=== PATIENT | male | born 1990 | race Hispanic/Latino ===

== ENCOUNTER 2018-06-08 23:43 | Emergency (ER) | payer SELFPAY | END 2018-06-09 00:41 | disposition home or self-care (01) | LOC: EDH 23:43 | DX: J03.90 Acute tonsillitis, unspecified (principal) | CPT/HCPCS: 87880 ==

== ENCOUNTER 2018-06-12 08:37 | Emergency (ER) | payer OTHER | END 2018-06-12 09:33 | disposition home or self-care (01) | LOC: EDH 08:37 | DX: H10.9 Unspecified conjunctivitis (principal) ==

== ENCOUNTER 2018-09-17 11:42 | Emergency (ER) | payer OTHER ==
[2018-09-17] MEDS ORDERED: SODIUM CHLORIDE 0.9% 1000ML 1,000 ML IV ONE (12:38)
[2018-09-17 12:42] LABS: BASOPHILS % (AUTO) 0.8 % (0.0-5.0); EOSINOPHILS % (AUTO) 1.1 % (0.0-8.0); HEMATOCRIT 49.9 % (42-54); MEAN CORPUSCULAR HEMOGLOBIN 29.1 pg (27.0-33.0); MEAN CORPUSCULAR VOLUME 85.6 fL (79-99); MONOCYTES % (AUTO) 7.7 % (3.0-13.0); NEUTROPHILS % (AUTO) 64.4 % (40.0-77.0); NUCLEATED RED BLOOD CELLS 0.1 % (0.0-0.19); PLATELET COUNT (AUTO) 240 K/uL (130-400); RED BLOOD CELL COUNT(AUTO) 5.82 MIL/uL (4.50-6.20); RED CELL DISTRIBUTION WIDTH 12.9 % (11.0-15.5); WHITE BLOOD COUNT (AUTO) 9.5 K/uL (4.8-10.8)
[2018-09-17 12:48] LABS: APPEARANCE,URINE Clear (CLEAR); BILIRUBIN,URINE Negative (NEGATIVE); COLOR,URINE Yellow (YELLOW); GLUCOSE, URINE (UA) Negative (NEGATIVE); KETONES,URINE Negative (NEGATIVE); LEUKOCYTE ESTERASE ,URINE Negative (NEGATIVE); NITRATE,URINE Negative (NEGATIVE); OCCULT BLOOD,URINE Negative (NEGATIVE); PH,URINE 6.5 (5.0-8.0); PROTEIN,URINE Negative (NEGATIVE)
[2018-09-17 13:15] LABS: CREATININE 0.9 mg/dL (0.5-1.5)
[2018-09-17 13:19] LABS: BILIRUBIN,TOTAL 0.6 mg/dL (0.2-1.0); TOTAL PROTEIN, SERUM 7.9 g/dL (6.0-8.3)
[2018-09-17] MEDS ORDERED: KETOROLAC TROMETHAMINE 15MG/ML ONE (13:39)
== END 2018-09-17 13:54 | disposition home or self-care (01) ==
LOC: EDH 11:42
DX: S39.011A Strain of muscle, fascia and tendon of abdomen, initial encounter (principal); X58.XXXA Exposure to other specified factors, initial encounter; Y93.89 Activity, other specified; Y92.89 Other specified places as the place of occurrence of the external cause; Y99.8 Other external cause status
CPT/HCPCS: 36415; 74176; 80053; 81003; 82150; 82550; 83690; 85025; 96374; 99284; J1885; J7030

== ENCOUNTER 2018-11-11 20:42 | Emergency (ER) | payer SELFPAY ==
[2018-11-11 23:11] LABS: BASOPHILS % (AUTO) 0.9 % (0.0-5.0); EOSINOPHILS % (AUTO) 1.1 % (0.0-8.0); HEMATOCRIT 47.4 % (42-54); LYMPHOCYTES % (AUTO) 28.3 % (21.0-51.0); MEAN CORPUSCULAR HEMOGLOBIN 29.5 pg (27.0-33.0); MEAN CORPUSCULAR HGB CONC 34.4 g/dL (32.0-36.0); MEAN CORPUSCULAR VOLUME 85.8 fL (79-99); MONOCYTES % (AUTO) 6.9 % (3.0-13.0); NEUTROPHILS % (AUTO) 62.8 % (40.0-77.0); PLATELET COUNT (AUTO) 217 K/uL (130-400); RED BLOOD CELL COUNT(AUTO) 5.53 MIL/uL (4.50-6.20); RED CELL DISTRIBUTION WIDTH 12.7 % (11.0-15.5); WHITE BLOOD COUNT (AUTO) 9.1 K/uL (4.8-10.8)
[2018-11-11 23:24] LABS: INR 0.99 (0.85-1.15); PARTIAL THROMBOPLASTIN TIME 29.2 SEC (26.3-35.5); PROTHROMBIN TIME 10.4 SEC (9.6-11.6)
[2018-11-11 23:29] LABS: POTASSIUM 3.7 mmol/L (3.5-5.1)
[2018-11-11] MEDS ORDERED: IOHEXOL 350 MG/ML 100ML INFUS..BTL IV ONE (23:32)
[2018-11-11 23:34] LABS: ALBUMIN 3.9 g/dL (3.5-5.0); BILIRUBIN,TOTAL 0.5 mg/dL (0.2-1.0); TOTAL PROTEIN, SERUM 7.5 g/dL (6.0-8.3)
== END 2018-11-12 01:32 | disposition home or self-care (01) ==
LOC: EDH 20:42
DX: R04.2 Hemoptysis (principal)
CPT/HCPCS: 36415; 71046; 71275; 80053; 85025; 85610; 85730; 99285; Q9967

== ENCOUNTER 2018-12-15 23:27 | Emergency (ER) | payer SELFPAY | END 2018-12-16 00:01 | disposition home or self-care (01) | LOC: EDH 23:27 | DX: S91.201A Unspecified open wound of right great toe with damage to nail, initial encounter (principal); W23.0XXA Caught, crushed, jammed, or pinched between moving objects, initial encounter; Y93.89 Activity, other specified; Y92.098 Other place in other non-institutional residence as the place of occurrence of the external cause; Y99.8 Other external cause status | CPT/HCPCS: 99281 ==

== ENCOUNTER 2019-04-28 16:36 | Emergency (ER) | payer OTHER ==
[2019-04-28] MEDS ORDERED: AZITHROMYCIN 250 MG TABLET PO ONE (17:20)
[2019-04-28] MEDS ORDERED: CEFTRIAXONE SODIUM 500 MG VIAL ONE (17:20)
[2019-04-28] MEDS ORDERED: LIDOCAINE HCL-MPF 1% 2ML VIAL ONE (17:20)
[2019-04-28 17:25] LABS: APPEARANCE,URINE Clear (CLEAR); BILIRUBIN,URINE Negative (NEGATIVE); COLOR,URINE Yellow (YELLOW); GLUCOSE, URINE (UA) Negative (NEGATIVE); KETONES,URINE Negative (NEGATIVE); LEUKOCYTE ESTERASE ,URINE Large (NEGATIVE); NITRATE,URINE Negative (NEGATIVE); OCCULT BLOOD,URINE Negative (NEGATIVE); PROTEIN,URINE Negative (NEGATIVE)
[2019-04-28 17:30] LABS: RBC,URINE 0-1 /HPF (0-1); WBC,URINE 26-50 /HPF (0-1)
[2019-04-28 17:31] LABS: BACTERIA,URINE Few /HPF (None Seen)
[2019-04-28 17:32] LABS: MUCUS,URINE Rare LPF (None Seen); SQUAMOUS EPITHELIAL CELL,UR Rare /HPF (0-2)
== END 2019-04-28 18:24 | disposition home or self-care (01) ==
LOC: EDH 16:36
DX: N34.2 Other urethritis (principal)
CPT/HCPCS: 81001; 87088; 87486; 87797; 96372; 99284; J0696; J3490